=== PATIENT | female | born 1995 | race Caucasian/White ===

== ENCOUNTER 2023-07-01 12:27 | Emergency (ER) | payer OTHER ==
[2023-07-01 12:55] VITALS: TEMP 98.6
--- NOTE | 2023-07-01 12:57 | ED ---
General Adult HPI - History of Present Illness -: hour(s) Radiation: non-radiation Consistency: constant Improves with: none Worsens with: none Associated Symptoms: malaise, syncope (Patient felt near syncopal), weakness Treatments Prior to Arrival: none <Tony Martini - Last Filed: 07/01/23 16:18> - General Source: patient, EMS, RN notes reviewed Mode of arrival: EMS Limitations: no limitations <Kehinde Ariza - Last Filed: 07/02/23 06:43> - General Chief complaint: Dizziness Stated complaint: dizziness, weakness Time Seen by Provider: 07/01/23 12:56 - History of Present Illness Initial comments: This is a 28-year-old female to the emergency department for evaluation of nausea and dizziness lightheadedness weakness and feelings of near syncope. Patient is 10 days after last opiate use, patient recently was started on Catapres for blood pressure and she has had history of high blood pressure during pregnancies. Patient currently is without chest pain or shortness of breath. (Tony Martini) 28-year-old female presents emergency Department with chief complaint of dizziness, weakness. Patient states symptoms started this morning. Patient currently at [facility]. Patient states that she's been there for 1 week for opiate abuse. Patient did have 06/05/2023. Patient states that she's had no comp location no significant hypertension. Denies any abdominal pain no vaginal bleeding. She does complain of mild headache. (Kehinde Ariza) - Related Data Allergies Allergy/AdvReac Type Severity Reaction Status Date / Time diphenhydramine Allergy Rash/Hives Verified 07/01/23 12:55 [From Benadryl] erythromycin base Allergy Anaphylaxis Verified 07/01/23 12:55 ondansetron [From Zofran] Allergy Rash/Hives Verified 07/01/23 12:55 Review of Systems ROS Other: All systems not noted in ROS Statement are negative. <Tony Martini - Last Filed: 07/01/23 16:18> ROS Other: All systems not noted in ROS Statement are negative. <Kehinde Ariza - Last Filed: 07/02/23 06:43> ROS Statement: Those systems with pertinent positive or pertinent negative responses have been documented in the HPI. Past Medical History Additional Past Medical History / Comment(s): preclampsia, kidney stones History of Any Multi-Drug Resistant Organisms: None Reported Past Surgical History: Section Past Psychological History: Anxiety, Depression, PTSD Smoking Status: Current every day smoker Past Alcohol Use History: None Reported Past Drug Use History: Marijuana, Opiates <Kehinde Ariza - Last Filed: 07/02/23 06:43> General Exam General appearance: alert, in no apparent distress Head exam: Present: atraumatic, normocephalic, normal inspection Eye exam: Present: normal appearance, PERRL, EOMI. Absent: scleral icterus, conjunctival injection, periorbital swelling ENT exam: Present: normal exam, mucous membranes moist Neck exam: Present: normal inspection. Absent: tenderness, meningismus, lymphadenopathy Respiratory exam: Present: normal lung sounds bilaterally. Absent: respiratory distress, wheezes, rales, rhonchi, stridor Cardiovascular Exam: Present: regular rate, normal rhythm, normal heart sounds. Absent: systolic murmur, diastolic murmur, rubs, gallop, clicks GI/Abdominal exam: Present: soft, normal bowel sounds. Absent: distended, tenderness, guarding, rebound, rigid Extremities exam: Present: normal inspection, full ROM, normal capillary refill. Absent: tenderness, pedal edema, joint swelling, calf tenderness Back exam: Present: normal inspection Neurological exam: Present: alert, oriented X3, CN II-XII intact Psychiatric exam: Present: normal affect, normal mood Skin exam: Present: warm, dry, intact, normal color. Absent: rash <Tony Martini - Last Filed: 07/01/23 16:18> Limitations: no limitations <Kehinde Ariza - Last Filed: 07/02/23 06:43> - General Exam Comments Initial Comments: Visual Physical Exam Vital signs reviewed General: Well-appearing, nontoxic, no acute distress. Head: Normocephalic, atraumatic Eyes: PERRLA, EOMI ENT: Airway patent Chest: Nonlabored breathing Skin: No visual rash, normal skin tone Neuro: Alert and oriented 3 Musculoskeletal: No gross abnormalities (Kehinde Ariza) Course <Tony Martini - Last Filed: 07/01/23 16:18> Vital Signs 07/01/23 07/01/2307/01/23 12:48 16:10 16:12 Temperature 98.6 F Pulse Rate 63 Respiratory 20 Rate Blood Pressure 132/85 Blood Pressure 148/92 138/84 [Right Arm] O2 Sat by Pulse 100 Oximetry 07/01/23 07/01/23 16:14 19:40 Temperature Pulse Rate 65 Respiratory 18 Rate Blood Pressure 168/102 Blood Pressure 123/82 [Right Arm] O2 Sat by Pulse 98 Oximetry - Reevaluation(s) Reevaluation #1: 07/01/23 15:58 Medical records reviewed (Tony Martini) Reevaluation #2: 07/01/23 15:58 Patient feels dramatically improved here in the ER (Tony Martini) Reevaluation #3: 07/01/23 15:58 Patient informed results questions answered (Tony Martini) Reevaluation #4: 07/01/23 15:59 Was pt. sent in by a medical professional or institution (, PA, EXPERIMENTAL ASSEMBLER, urgent care, hospital, or alf...) When possible be specific @ -no Did you speak to anyone other than the patient for history (EMS, parent, family, police, friend...)? What history was obtained from this source @ -no Did you review nursing and triage notes (agree or disagree)? Why? @ -agree Are old charts reviewed (outside hosp., previous admission, EMS record, old EKG, old radiological studies, urgent care reports/EKG's, alf records)? Report findings @ -yes Differential Diagnosis (chest pain, altered mental status, abdominal pain women, abdominal pain men, vaginal bleeding, weakness, fever, dyspnea, syncope, headache, dizziness, GI bleed, back pain, seizure, CVA, palpatations, mental health, musculoskeletal)? @ -prior EKG interpreted by me (3pts min.). @ -yes X-rays interpreted by me (1pt min.). @ -yes CT interpreted by me (1pt min.). @ -no U/S interpreted by me (1pt. min.). @ -no What testing was considered but not performed or refused? (CT, X-rays, U/S, labs)? Why? @ -none What meds were considered but not given or refused? Why? @ -none Did you discuss the management of the patient with other professionals (professionals i.e. , PA, EXPERIMENTAL ASSEMBLER, lab, RT, psych nurse, social sciences professor, medicaid service coordinator, teacher, bomb squad officer, patient case coordinator)? Give summary @ -no Was smoking cessation discussed for >3mins.? @ -no Was critical care preformed (if so, how long)? @ -no Were there social determinants of health that impacted care today? How? (Homelessness, low income, unemployed, alcoholism, drug addiction, transportation, low edu. Level, literacy, decrease access to med. care, correction, rehab)? @ -none Was there de-escalation of care discussed even if they declined (Discuss DNR or withdrawal of care, Hospice)? DNR status @ -no What co-morbidities impacted this encounter? (DM, HTN, Smoking, COPD, CAD, Cancer, CVA, ARF, Chemo, Hep., AIDS, mental health diagnosis, sleep apnea, morbid obesity)? @ -none Was patient admitted / discharged? Hospital course, mention meds given and route, prescriptions, significant lab abnormalities, going to OR and other pertinent info. @ - Undiagnosed new problem with uncertain prognosis? @ -no Drug Therapy requiring intensive monitoring for toxicity (Heparin, Nitro, Insulin, Cardizem)? @ -no Were any procedures done? @ -no Diagnosis/symptom? @ - Acute, or Chronic, or Acute on Chronic? @ -Acute Uncomplicated (without systemic symptoms) or Complicated (systemic symptoms)? @ -Complicated Side effects of treatment? @ -no Exacerbation, Progression, or Severe Exacerbation? @ -exacerbation Poses a threat to life or bodily function? How? (Chest pain, USA, ID, pneumonia, PE, COPD, DKA, ARF, appy, cholecystitis, CVA, Diverticulitis, Homicidal, Suicidal, threat to staff... and all critical care pts) @ -yes (Tony Martini) Reevaluation #5: 07/01/23 15:58 Differential Dizziness: Benign paroxysmal positional Vertigo, Menieres disease, otitis media, acoustic neuroma, vertebrobasilar insufficiency, cerebellar stroke, encephalitis, hypovolemic, arrhythmia, coronary artery syndrome, anemia, this is not meant to be an all-inclusive list (Tony Martini) EKG Findings - EKG Comments: EKG Findings:: EKG sinus 60 CA 141 QRS 75 QTc 452 <Tony Martini - Last Filed: 07/01/23 16:18> Medical Decision Making - Lab Data Result diagrams: 07/01/23 13:12 07/01/23 13:12 <Tony Martini - Last Filed: 07/01/23 16:18> - Lab Data Result diagrams: 07/01/23 13:12 07/01/23 13:12 <Kehinde Ariza - Last Filed: 07/02/23 06:43> - Medical Decision Making I performed the with no portion of this chart signed Kehinde Ariza PA-C (Kehinde Ariza) - Lab Data Lab Results 07/01/23 07/01/23 07/01/23 Range/Units 13:12 13:12 15:45 WBC 8.6 (3.8-10.6) k/uL RBC 4.13 (3.80-5.40) m/uL Hgb 11.2 L (11.4-16.0) gm/dL Hct 33.9 L (34.0-46.0) % MCV 82.0 (80.0-100.0) fL MCH 27.0 (25.0-35.0) pg MCHC 32.9 (31.0-37.0) g/dL RDW 17.5 H (11.5-15.5) % Plt Count 312 (150-450) k/uL MPV 8.4 Neutrophils % 66 % Lymphocytes % 27 % Monocytes % 5 % Eosinophils % 0 % Basophils % 0 % Neutrophils # 5.7 (1.3-7.7) k/uL Lymphocytes # 2.3 (1.0-4.8) k/uL Monocytes # 0.4 (0-1.0) k/uL Eosinophils # 0.0 (0-0.7) k/uL Basophils # 0.0 (0-0.2) k/uL Hypochromasia Slight Anisocytosis Slight Sodium 141 (137-145) mmol/L Potassium 4.3 (3.5-5.1) mmol/L Chloride 107 (98-107) mmol/L Carbon Dioxide 27 (22-30) mmol/L Anion Gap 7 mmol/L BUN 9 (7-17) mg/dL Creatinine 0.69 (0.52-1.04) mg/dL Est GFR (CKD-EPI)AfAm >90 (>60 ml/min/1.73 sqM) Est GFR (CKD-EPI)NonAf >90 (>60 ml/min/1.73 sqM) Glucose 115 H (74-99) mg/dL Calcium 9.0 (8.4-10.2) mg/dL Phosphorus (2.5-4.5) mg/dL Magnesium 2.4 H (1.6-2.3) mg/dL Total Bilirubin 0.4 (0.2-1.3) mg/dL AST 21 (14-36) U/L ALT 17 (4-34) U/L Alkaline Phosphatase 112 (38-126) U/L Troponin I <0.012 (0.000-0.034) ng/mL Total Protein 7.3 (6.3-8.2) g/dL Albumin 4.0 (3.5-5.0) g/dL Urine Color Urine Appearance (Clear) Urine pH (5.0-8.0) Ur Specific [place] (1.001-1.035) Urine Protein (Negative) Urine Glucose (UA) (Negative) Urine Ketones (Negative) Urine Blood (Negative) Urine Nitrite (Negative) Urine Bilirubin (Negative) Urine Urobilinogen (<2.0) mg/dL Ur Leukocyte Esterase (Negative) Urine RBC (0-5) /hpf Urine WBC (0-5) /hpf Ur Squamous Epith Cells (0-4) /hpf Amorphous Sediment (None) /hpf Urine Mucus (None) /hpf 07/01/23 07/01/23 Range/Units 16:08 16:18 WBC (3.8-10.6) k/uL RBC (3.80-5.40) m/uL Hgb (11.4-16.0) gm/dL Hct (34.0-46.0) % MCV (80.0-100.0) fL MCH (25.0-35.0) pg MCHC (31.0-37.0) g/dL RDW (11.5-15.5) % Plt Count (150-450) k/uL MPV Neutrophils % % Lymphocytes % % Monocytes % % Eosinophils % % Basophils % % Neutrophils # (1.3-7.7) k/uL Lymphocytes # (1.0-4.8) k/uL Monocytes # (0-1.0) k/uL Eosinophils # (0-0.7) k/uL Basophils # (0-0.2) k/uL Hypochromasia Anisocytosis Sodium (137-145) mmol/L Potassium (3.5-5.1) mmol/L Chloride (98-107) mmol/L Carbon Dioxide (22-30) mmol/L Anion Gap mmol/L BUN (7-17) mg/dL Creatinine (0.52-1.04) mg/dL Est GFR (CKD-EPI)AfAm (>60 ml/min/1.73 sqM) Est GFR (CKD-EPI)NonAf (>60 ml/min/1.73 sqM) Glucose (74-99) mg/dL Calcium (8.4-10.2) mg/dL Phosphorus 2.9 (2.5-4.5) mg/dL Magnesium 2.4 H (1.6-2.3) mg/dL Total Bilirubin (0.2-1.3) mg/dL AST (14-36) U/L ALT (4-34) U/L Alkaline Phosphatase (38-126) U/L Troponin I (0.000-0.034) ng/mL Total Protein (6.3-8.2) g/dL Albumin (3.5-5.0) g/dL Urine Color Yellow Urine Appearance Cloudy H (Clear) Urine pH 8.5 H (5.0-8.0) Ur Specific [place] 1.013 (1.001-1.035) Urine Protein Trace H (Negative) Urine Glucose (UA) Negative (Negative) Urine Ketones Negative (Negative) Urine Blood Negative (Negative) Urine Nitrite Negative (Negative) Urine Bilirubin Negative (Negative) Urine Urobilinogen <2.0 (<2.0) mg/dL Ur Leukocyte Esterase Moderate H (Negative) Urine RBC 1 (0-5) /hpf Urine WBC 7 H (0-5) /hpf Ur Squamous Epith Cells 2 (0-4) /hpf Amorphous Sediment Occasional H (None) /hpf Urine Mucus Rare H (None) /hpf Disposition Is patient prescribed a controlled substance at d/c from ED?: No Time of Disposition: 16:00 <Tony Martini - Last Filed: 07/01/23 16:18> <Kehinde Ariza M - Last Filed: 07/02/23 06:43> Clinical Impression: Dizziness Disposition: HOME SELF-CARE Condition: Good Instructions (If sedation given, give patient instructions): Dizziness (ED) Referrals: None,Stated [Primary Care Provider] - 1-2 days
[2023-07-01 13:27] LABS: Anisocytosis Slight; Basophils % (A) 0 %; Eosinophils % (A) 0 %; HCT 33.9 % (34.0-46.0); HGB 11.2 gm/dL (11.4-16.0); Hypochromasia Slight; Lymphocytes # (A) 2.3 k/uL (1.0-4.8); Lymphocytes % (A) 27 %; MCHC 32.9 g/dL (31.0-37.0); Mean Platelet Volume 8.4; Monocytes # (A) 0.4 k/uL (0-1.0); Monocytes % (A) 5 %; Neutrophils # (A) 5.7 k/uL (1.3-7.7); Neutrophils % (A) 66 %; Platelet Count 312 k/uL (150-450); RBC 4.13 m/uL (3.80-5.40); RDW 17.5 % (11.5-15.5); WBC 8.6 k/uL (3.8-10.6)
[2023-07-01 13:43] LABS: ALT 17 U/L (4-34); AST 21 U/L (14-36); African American GFR (CKD) >90 (>60 ml/min/1.73 sqM); Alkaline Phosphatase 112 U/L (38-126); Anion Gap 7 mmol/L; Blood Urea Nitrogen 9 mg/dL (7-17); Carbon Dioxide 27 mmol/L (22-30); Chloride 107 mmol/L (98-107); Glucose 115 mg/dL (74-99); Magnesium 2.4 mg/dL (1.6-2.3); Non-African American GFR(CKD) >90 (>60 ml/min/1.73 sqM); Potassium 4.3 mmol/L (3.5-5.1); Sodium 141 mmol/L (137-145); Total Bilirubin 0.4 mg/dL (0.2-1.3); Total Protein 7.3 g/dL (6.3-8.2)
[2023-07-01] MEDS ORDERED: SODIUM CHLORIDE 0.9% 1,000 ML IV STA (15:59)
[2023-07-01 16:35] LABS: Magnesium 2.4 mg/dL (1.6-2.3); Phosphorus 2.9 mg/dL (2.5-4.5)
[2023-07-01 16:58] LABS: Amorphous Sediment,Urine Occasional /hpf; Appearance,Urine Cloudy (Clear); Bilirubin,Urine Negative (Negative); Blood,Urine Negative (Negative); Color,Urine Yellow; Glucose,Urine (UA) Negative (Negative); Ketones,Urine Negative (Negative); Leukocyte Esterase,Urine Moderate (Negative); Mucus,Urine Rare /hpf; Nitrite,Urine Negative (Negative); PH, Urine 8.5 (5.0-8.0); Protein,Urine Trace (Negative); RBC,Urine 1 /hpf (0-5); Specific Gravity,Urine 1.013 (1.001-1.035); Squamous Epithelial Cell,Urine 2 /hpf (0-4); Urobilinogen,Urine <2.0 mg/dL (<2.0); WBC,Urine 7 /hpf (0-5)
[2023-07-01 19:53] VITALS: BP 168/102; PULSE 65; RESP 18
== END 2023-07-01 19:40 | disposition home or self-care (01) ==
LOC: EC 12:27
DX: R42 Dizziness and giddiness (principal); F12.90 Cannabis use, unspecified, uncomplicated; F17.200 Nicotine dependence, unspecified, uncomplicated; Z88.8 Allergy status to other drugs, medicaments and biological substances; Z86.59 Personal history of other mental and behavioral disorders
CPT/HCPCS: 36415; 80053; 81001; 83735; 84100; 84484; 85025; 93005; 96360; 96361; 99284